=== PATIENT | female | born 2000 | race American Indian/Alaskan Native ===

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

== ENCOUNTER 2019-05-08 00:50 | Emergency (ER) | payer SELFPAY ==
[2019-05-08 02:29] LABS: Mucus,Urine FEW /HPF
[2019-05-08 02:36] LABS: Bilirubin,Urine NEG (Negative); Blood,Urine MOD (Negative); Color,Urine Yellow (Yellow); Protein,Urine <15 mg/dL mg/dL (Negative); Urobilinogen,Urine < 2.0 mg/dL (<2.0)
[2019-05-08 03:02] LABS: HCG Qualitative,Urine Negative (Negative)
--- NOTE | 2019-05-08 04:16 | Emergency Department Report ---
ED Female HPI - General Chief complaint: Urogenital-Female Stated complaint: UTI Time Seen by Provider: 05/08/19 03:20 Source: patient Mode of arrival: Ambulatory Limitations: No Limitations - History of Present Illness Initial comments: Patient is a A1 19-year-old female who presents to ED with complaint of acute onset suprapubic pressure, dysuria, urinary urgency and frequency, vaginal discharge for the last 1 week, worse in the last 2 days. Patient also states that she has been having persistent vaginal bleeding for the last 2 weeks after she started her menstrual cycle. Patient states that she has a history of recurrent bacterial vaginosis and suspects that this may be the case at this time. Patient denies fever, chills, dizziness, headache, chest pain, shortness of breath, abdominal pain, cough, low back pain or dyspareunia. MD Complaint: vaginal discharge, dysuria, pelvic pain -: Sudden, week(s) (1) Location: suprapubic Radiation: non-radiating Severity: mild Severity scale (0 -10): 2 Quality: cramping, dull Consistency: intermittent Improves with: none Worsens with: none Are you Now?: No Last Menstrual Period: 04/28/19 EDC: 02/02/20 Associated Symptoms: denies other symptoms, vaginal discharge, vaginal bleeding, dysuria, hematuria. denies: abdominal pain, nausea/vomiting, fever/chills, headaches, loss of appetite, seizure, shortness of breath, syncope, weakness - Related Data Sexually active: Yes : 2 Para: 1 A: 1 Home Medications Medication Instructions Recorded Confirmed Last Taken Metoclopramide [Reglan] 10 mg PO ACHS 08/07/17 09/15/17 09/08/17 16:00 Multivitamin Tablet 10 mg PO 4XD 08/07/17 09/15/17 09/14/17 22:00 Previous Rx's Medication Instructions Recorded Last Taken Type metroNIDAZOLE [Metronidazole] 500 mg PO BID #14 tablet 08/08/18 Unknown Rx metroNIDAZOLE [Flagyl] 500 mg PO Q12HR #14 tab 05/08/19 Unknown Rx Allergies Allergy/AdvReac Type Severity Reaction Status Date / Time No Known Allergies Allergy Verified 08/31/17 08:12 ED Review of Systems ROS: Stated complaint: UTI Other details as noted in HPI Constitutional: denies: chills, fever Eyes: denies: eye pain, eye discharge, vision change ENT: denies: ear pain, throat pain Respiratory: denies: cough, shortness of breath, wheezing Cardiovascular: denies: chest pain, palpitations Endocrine: no symptoms reported Gastrointestinal: denies: abdominal pain, nausea, diarrhea Genitourinary: urgency, dysuria, frequency, hematuria, discharge, abnormal menses Musculoskeletal: denies: back pain, joint swelling, arthralgia Skin: denies: rash, lesions Neurological: denies: headache, weakness, paresthesias Psychiatric: denies: anxiety, depression Hematological/Lymphatic: denies: easy bleeding, easy bruising ED Past Medical Hx - Past Medical History Previous Medical History?: Yes Hx Hypertension: No Hx Congestive Heart Failure: No Hx Diabetes: No Hx Deep Vein Thrombosis: No Hx Renal Disease: No Hx Sickle Cell Disease: No Hx Seizures: No Hx Psychiatric Treatment: Yes ("cutting") Hx Asthma: No Hx COPD: No Hx HIV: No - Surgical History Past Surgical History?: No - Social History Smoking Status: Current Every Day Smoker Substance Use Type: None - Medications Home Medications: Home Medications Medication Instructions Recorded Confirmed Last Taken Type Metoclopramide [Reglan] 10 mg PO ACHS 08/07/17 09/15/17 09/08/17 16:00 History Multivitamin Tablet 10 mg PO 4XD 08/07/17 09/15/17 09/14/17 22:00 History metroNIDAZOLE [Metronidazole] 500 mg PO BID #14 tablet 08/08/18 Unknown Rx metroNIDAZOLE [Flagyl] 500 mg PO Q12HR #14 tab 05/08/19 Unknown Rx ED Physical Exam - General Limitations: No Limitations General appearance: alert, in no apparent distress - Head Head exam: Present: atraumatic, normocephalic, normal inspection - Eye Eye exam: Present: normal appearance, PERRL, EOMI Pupils: Present: normal accommodation - ENT ENT exam: Present: normal exam, normal orophraynx, mucous membranes moist, TM's normal bilaterally, normal external ear exam - Neck Neck exam: Present: normal inspection, full ROM - Respiratory Respiratory exam: Present: normal lung sounds bilaterally. Absent: respiratory distress, wheezes, rales, rhonchi, chest wall tenderness, accessory muscle use, decreased breath sounds, prolonged expiratory - Cardiovascular Cardiovascular Exam: Present: regular rate, normal rhythm, normal heart sounds. Absent: systolic murmur, diastolic murmur, rubs, gallop - GI/Abdominal GI/Abdominal exam: Present: soft, normal bowel sounds. Absent: distended, tenderness, guarding, rebound, hyperactive bowel sounds, hypoactive bowel sounds, organomegaly, pulsatile mass - Rectal Rectal exam: Present: deferred - Extremities Exam Extremities exam: Present: normal inspection, full ROM, normal capillary refill - Back Exam Back exam: Present: normal inspection, full ROM. Absent: tenderness, CVA tenderness (R), CVA tenderness (L), muscle spasm - Neurological Exam Neurological exam: Present: alert, oriented X3, CN II-XII intact, normal gait, reflexes normal - Psychiatric Psychiatric exam: Present: normal affect, normal mood - Skin Skin exam: Present: warm, dry, intact, normal color. Absent: rash ED Course - Reevaluation(s) Reevaluation #1: 05/08/19 04:17 This is a 19-year-old female who presented to the ED with dysuria, urinary frequency and urgency and no vaginal discharge. Patient is alert and oriented 3 and is not in distress. Urinalysis is unremarkable. Given the fact that the patient has a history of recurrent bacterial vaginosis with similar symptoms, patient was discharged home on Flagyl to treat for bacterial vaginosis. Patient discharged home and advised to follow-up with PERIOPERATIVE EDUCATOR physician in 5-7 days for reevaluation or return to the ED immediately if symptoms get worse. ED Medical Decision Making - Medical Decision Making This is a 19-year-old female who presented to the ED with dysuria, urinary frequency and urgency and no vaginal discharge. Patient is alert and oriented 3 and is not in distress. Urinalysis is unremarkable. Given the fact that the patient has a history of recurrent bacterial vaginosis with similar symptoms, patient was discharged home on Flagyl to treat for bacterial vaginosis. Patient discharged home and advised to follow-up with PERIOPERATIVE EDUCATOR physician in 5-7 days for reevaluation or return to the ED immediately if symptoms get worse. - Differential Diagnosis Bacterial vaginosis; Acute UTI; STD Critical care attestation.: If time is entered above; I have spent that time in minutes in the direct care of this critically ill patient, excluding procedure time. ED Disposition Clinical Impression: Vaginal discharge, Bacterial vaginosis Disposition: - TO HOME OR SELFCARE Is pt being admited?: No Does the pt Need Aspirin: No Condition: Stable Instructions: Bacterial Vaginosis (ED) Additional Instructions: Take medications with food, drink plenty of fluids and follow-up with your primary care physician in 5-7 days for reevaluation. Return to the ED immediately if symptoms get worse. Prescriptions: metroNIDAZOLE [Flagyl] 500 mg PO Q12HR #14 tab Referrals: PILO RICHARDSON MD [Primary Care Provider] - 3-5 Days Forms: STI Treatment and Prevention Time of Disposition: 04:19 Print Language: NAMIBIAN
[2019-05-08 04:30] VITALS: BP 124/65
== END 2019-05-08 04:27 | disposition home or self-care (01) ==
LOC: ED 00:50
DX: N76.0 Acute vaginitis (principal); F17.200 Nicotine dependence, unspecified, uncomplicated; Z79.899 Other long term (current) drug therapy
CPT/HCPCS: 81001; 81025

== ENCOUNTER 2021-06-07 22:27 | Outpatient (CLI) | payer OTHER ==
[2021-06-07 23:18] VITALS: BP 112/60
[2021-06-07] MEDS ORDERED: LACTATED RINGERS 1,000 ML IV ONE (23:27)
[2021-06-07 23:43] LABS: Bilirubin,Urine NEG (Negative); Blood,Urine NEG (Negative); Color,Urine Amber (Yellow); Mucus,Urine 3+ /HPF
[2021-06-07] MEDS ORDERED: D5W/LACTATED RINGERS 1,000 ML IV SCH (23:45)
[2021-06-08] MEDS ORDERED: cefTRIAXone/NS 1 GM/50 ML 1 GM/50 ML BAG IV ONE (00:30)
== END 2021-06-08 02:05 | disposition home or self-care (01) ==
LOC: TRG 22:27 → APU 22:29 → TRG 06-08 02:05
PROVIDERS: ATTEND Obstetrics & Gynecology
DX: O62.9 Abnormality of forces of labor, unspecified (principal); O26.893 Other specified pregnancy related conditions, third trimester; R10.9 Unspecified abdominal pain; Z3A.33 33 weeks gestation of pregnancy
CPT/HCPCS: 59025; 81001; 96361; 96365; J0696; J7120; J7121; 96360